=== PATIENT | female | born 1980 | race Caucasian/White ===

== ENCOUNTER 2021-01-17 12:51 | Emergency (ER) | payer MEDICAID ==
[~2021-01-17] VITALS: Ht 152.4 cm; Wt 48.1 kg
[2021-01-17 13:01] VITALS: Ht 152.4 cm; Wt 48.1 kg
[2021-01-17 14:15] LABS: BASOPHIL % 0.4 % (0.2-1.3); PLATELET COUNT 308 x10^3mcL (179-408); RED CELL DISTRIBUTION WIDTH 12.7 % (12.3-17.7)
[2021-01-17 14:36] LABS: CALCIUM 8.9 mg/dL (8.5-10.1); CARBON DIOXIDE 26.1 mmol/L (21-32); CHLORIDE SERUM 106 mmol/L (98-107); CREATININE SERUM 0.6 mg/dL (0.6-1.0); GFR1 > 60 mL/min; GLUCOSE SERUM 82 mg/dL (74-106); POTASSIUM SERUM 3.8 mmol/L (3.5-5.1); SODIUM SERUM 143 mmol/L (136-145)
[2021-01-17 14:45] LABS: AMPHETAMINE QUAL UR NONE DETECTED (See below)
[2021-01-17 14:46] LABS: ALBUMIN 3.9 g/dL (3.4-5.0); ALKALINE PHOSPHATASE 60 U/L (46-116); ALT/SGPT 13 U/L (14-59); AST/SGOT 17 U/L (15-37); BILIRUBIN TOTAL 0.5 mg/dL (0.20-1.00); TOTAL PROTEIN, SERUM 7.2 g/dL (6.4-8.2)
[2021-01-17] MEDS ORDERED: ONDANSETRON4 M3 PO (16:01)
[2021-01-17 16:29] VITALS: BP 119/76
== END 2021-01-17 16:29 | disposition home or self-care (01) ==
LOC: ED 12:51
PROVIDERS: Emergency Medicine
DX: T78.49XA Other allergy, initial encounter (principal); X58.XXXA Exposure to other specified factors, initial encounter; R51.9 Headache, unspecified; F41.9 Anxiety disorder, unspecified; R42 Dizziness and giddiness
CPT/HCPCS: J1200; J1885; J2405; J2930; J7030